=== PATIENT | male | born 1985 | race Caucasian/White ===

== ENCOUNTER 2017-01-01 05:35 | Emergency (ER) | payer BC, OTHER ==
[~2017-01-01] VITALS: Ht 172.7 cm; Wt 57.5 kg
[~2017-01-01 05:35] MED LIST: AMOX500T PO; AZIT500I PO; CELE20TA PO; DOXY100 PO; PROP40TA27 PO; [UNRECOGNIZED DRUG - CODE] EX
[2017-01-01 05:36] VITALS: BP 161/108; PULSE 78; RESP 16; TEMP 99.4; O2SAT 96; O2SAT 98
--- NOTE | 2017-01-01 07:26 | PD ---
HPI Chief Complaint: Psychiatric Symptoms Time Seen by Provider: 07:10 Travel History International Travel<30 days: No Contact w/Intl Traveler<30days: No Traveled to known affect area: No History of Present Illness HPI 31-year-old male presents voluntarily for evaluation of suicidal ideation. For the past few weeks he has been having occasional suicidal thoughts. At one point he did pull a knife but he did not use it. He does endorse alcohol use regularly. Denies any illicit drug use. Denies any homicidal ideation or hallucinations. He has no other complaints at this time. PFSH Past Medical History Anxiety: Yes Depression: Yes Diminished Hearing: No Medical other: Yes (LOW BLOOD SUGAR, ESSENTIAL TREMOR) Immunizations Current: Yes Past Surgical History Surgical History: No Previous Surgery Social History Alcohol Use: Yes ("EVER OTHER DAY") Tobacco Use: Yes (1PPD) Substance Use: Yes (MARIJUANA) Allergies-Medications (Allergen,Severity, Reaction): Coded Allergies: Penicillin (Verified Allergy, Unknown, 01/01/17) Reported Meds & Prescriptions Reported Meds & Active Scripts Active No Active Prescriptions or Reported Medications Review of Systems Except as stated in HPI: all other systems reviewed are Neg Physical Exam Narrative GENERAL: Well-developed well-nourished male in no acute distress SKIN: Warm and dry. HEAD: Atraumatic. Normocephalic. EYES: Pupils equal and round. No scleral icterus. No injection or drainage. ENT: No nasal bleeding or discharge. Mucous membranes pink and moist. NECK: Trachea midline. No JVD. CARDIOVASCULAR: Regular rate and rhythm. No murmur appreciated. RESPIRATORY: No accessory muscle use. Clear to auscultation. Breath sounds equal bilaterally. GASTROINTESTINAL: Abdomen soft, non-tender, nondistended. Hepatic and splenic margins not palpable. MUSCULOSKELETAL: No obvious deformities. NEUROLOGICAL: Awake and alert. No obvious cranial nerve deficits. Motor grossly within normal limits. Normal speech. PSYCHIATRIC: Depressed mood; insight and judgment normal. Data Data Last Documented VS Vital Signs Date Time Temp Pulse Resp B/P Pulse Ox O2 Delivery O2 Flow Rate FiO2 01/01/17 05:36 99.4 78 16 161/108 96 Room Air Orders Complete Blood Count With Diff (01/01/17 07:13) Comprehensive Metabolic Panel (01/01/17 07:13) Psych Screen (01/01/17 07:13) Drug Screen, Random Urine (01/01/17 07:13) Alcohol (Ethanol) (01/01/17 07:13) Diet Regular Basic (01/01/17 Breakfast) Labs Laboratory Tests Test 01/01/17 01/01/17 06:00 07:14 White Blood Count 11.3 TH/MM3 Red Blood Count 5.15 MIL/MM3 Hemoglobin 15.6 GM/DL Hematocrit 44.3 % Mean Corpuscular Volume 86.0 FL Mean Corpuscular Hemoglobin 30.3 PG Mean Corpuscular Hemoglobin 35.2 % Concent Red Cell Distribution Width 13.0 % Platelet Count 134 TH/MM3 Mean Platelet Volume 9.2 FL Neutrophils (%) (Auto) 77.9 % Lymphocytes (%) (Auto) 16.3 % Monocytes (%) (Auto) 4.4 % Eosinophils (%) (Auto) 0.8 % Basophils (%) (Auto) 0.6 % Neutrophils # (Auto) 8.8 TH/MM3 Lymphocytes # (Auto) 1.8 TH/MM3 Monocytes # (Auto) 0.5 TH/MM3 Eosinophils # (Auto) 0.1 TH/MM3 Basophils # (Auto) 0.1 TH/MM3 CBC Comment DIFF FINAL Differential Comment Sodium Level 142 MEQ/L Potassium Level 3.7 MEQ/L Chloride Level 107 MEQ/L Carbon Dioxide Level 26.5 MEQ/L Anion Gap 9 MEQ/L Blood Urea Nitrogen 14 MG/DL Creatinine 1.01 MG/DL Estimat Glomerular Filtration 87 ML/MIN Rate Random Glucose 83 MG/DL Calcium Level 9.2 MG/DL Total Bilirubin 0.9 MG/DL Aspartate Amino Transf 16 U/L (AST/SGOT) Alanine Aminotransferase 23 U/L (ALT/SGPT) Alkaline Phosphatase 48 U/L Total Protein 7.5 GM/DL Albumin 4.6 GM/DL Ethyl Alcohol Level LESS THAN 3 MG/DL Urine Opiates Screen NEG Urine Barbiturates Screen NEG Urine Amphetamines Screen NEG Urine Benzodiazepines Screen NEG Urine Cocaine Screen POS Urine Cannabinoids Screen POS MDM Medical Decision Making Medical Screen Exam Complete: Yes Emergency Medical Condition: Yes Medical Record Reviewed: Yes Interpretation(s) CBC WBC 11.3, platelet count 134 CMP unremarkable Toxicology positive for cocaine, cannabinoids Differential Diagnosis Major depressive disorder, depressive disorder not otherwise specified, acute psychosis, substance induced mood disorder, adjustment reaction Narrative Course 31-year-old male presents voluntarily requesting psychiatric evaluation of suicidal ideation. Mental health screening discussed with the patient. Psychiatric screen ordered. The patient's lab work is notable for positive cocaine and cannabinol toxicology screen. The patient is medically cleared for psychiatric disposition. Diagnosis Primary Impression: Suicidal ideation Scripts No Active Prescriptions or Reported Meds Mike Mendsoa Jan 01, 2017 07:26
[2017-01-01 07:47] LABS: AUTOMATED NEUTROPHIL # 8.8 TH/MM3 (1.8-7.7); BASOPHIL # 0.1 TH/MM3 (0-0.2); BASOPHIL % 0.6 % (0.0-2.0); EOSINOPHIL # 0.1 TH/MM3 (0-0.4); EOSINOPHIL % 0.8 % (0.0-4.0); HEMATOCRIT 44.3 % (39.0-51.0); HEMO FLAGS DIFF FINAL; LYMPH % 16.3 % (9.0-44.0); LYMPHOCYTE # 1.8 TH/MM3 (1.0-4.8); MEAN CORPUSCULAR HEMOGLOBIN 30.3 PG (27.0-34.0); MEAN CORPUSCULAR HGB CONC 35.2 % (32.0-36.0); MONO % 4.4 % (0.0-8.0); NEUT % 77.9 % (16.0-70.0); PLATELET COUNT 134 TH/MM3 (150-450); RED BLOOD COUNT 5.15 MIL/MM3 (4.50-5.90); WHITE BLOOD COUNT 11.3 TH/MM3 (4.0-11.0)
[2017-01-01 07:58] LABS: AMPHETAMINE, URINE NEG (NEG); BARBITURATES, URINE NEG (NEG); COCAINE, URINE POS (NEG)
[2017-01-01 08:00] LABS: ALT (GPT) 23 U/L (12-78); ANION GAP 9 MEQ/L (5-15); AST (GOT) 16 U/L (15-37); BICARBONATE 26.5 MEQ/L (21.0-32.0); BLOOD UREA NITROGEN 14 MG/DL (7-18); CHLORIDE 107 MEQ/L (98-107); GLOMERULAR FILTRATION RATE 87 ML/MIN (>89); POTASSIUM 3.7 MEQ/L (3.5-5.1); SODIUM (NA) 142 MEQ/L (136-145)
[2017-01-01 08:02] LABS: ALKALINE PHOSPHATASE 48 U/L (45-117); TOTAL BILIRUBIN ADULT 0.9 MG/DL (0.2-1.0)
[2017-01-01] MEDS ORDERED: BUPR75TA PO (08:46)
--- NOTE | 2017-01-01 11:50 | PD.CONS ---
Provisional Diagnosis Admission Date Seymour I. Major depressive disorder, single episode, without psychosis vs substance- induced mood disorder vs adjustment disorder with depressed mood, cannabis and cocaine use disorder Seymour II. Deferred Seymour III. He denies Seymour IV. Recent interruption of 5 years relationship with girlfriend Seymour V. 56 History of Present Illness Service Psychiatry Consult Requested By Primary Care Physician No Primary Care Physician HPI The patient is a 31 years old man, domiciled with his grandmother, employed, single, with reported a psychiatric history of anxiety and depression , no previous Hospitalizations, he is not in outpatient psychiatric care, he has been in Wellbutrin and Prozac in the past, no previous suicidal attempts, occasionally uses cannabis and cocaine, alcohol socially, no significant medical history, who came to the hospital voluntarily requesting a psychiatric evaluation for frequent suicidal thoughts and depressive symptoms. On psychiatric evaluation in the ER patient was found calm, cooperative, he states that since he broke up with girlfriend about month ago that things in his life has been going down that hill. Patient says that he had a 5 years relationship with this person and hasn't been easy to live without her. He also says that his grandfather recently and has been mourning since then. Patient endorses increased use of alcohol, cocaine and cannabis in order to treat his depression. He reports about 1 month of poor appetite, low energy, weight loss , frequent suicidal thoughts, generalized pessimism, no enjoying life, but he denies active suicidal ideation, he denies homicidal ideation, he denies visual and auditory hallucination. Patient is fully oriented in 3, no gross cognitive impairment observed. Review of Systems Constitutional: DENIES: Diaphoretic episodes, Fatigue, Fever, Weight gain, Weight loss, Chills, Dizziness, Change in appetite, Night Sweats Endocrine: DENIES: Heat/cold intolerance, Polydipsia, Polyuria, Polyphagia Eyes: DENIES: Blurred vision, Diplopia, Eye inflammation, Eye pain, Vision loss , Photosensitivity, Double Vision Ears, nose, mouth, throat: DENIES: Tinnitus, Hearing loss, Vertigo, Nasal discharge, Oral lesions, Throat pain, Hoarseness, Ear Pain, Running Nose, Epistaxis, Sinus Pain, Toothache, Odynophagia Respiratory: DENIES: Apneas, Cough, Snoring, Wheezing, Hemoptysis, Sputum production, Shortness of breath Cardiovascular: DENIES: Chest pain, Palpitations, Syncope, Dyspnea on Exertion , PND, Lower Extremity Edema, Orthopnea, Claudication Gastrointestinal: DENIES: Abdominal pain, Black stools, Bloody stools, Constipation, Diarrhea, Nausea, Vomiting, Difficulty Swallowing, Anorexia Musculoskeletal: DENIES: Joint pain, Muscle aches, Stiffness, Joint Swelling, Back pain, Neck pain Integumentary: DENIES: Abnormal pigmentation, Nail changes, Pruritus, Rash Hematologic/lymphatic: DENIES: Bruising, Lymphadenopathy Immunologic/allergic: DENIES: Eczema, Urticaria Neurologic: DENIES: Abnormal gait, Headache, Localized weakness, Paresthesias, Seizures, Speech Problems, Tremor, Poor Balance Psychiatric: DENIES: Anxiety, Confusion, Mood changes, Depression, Hallucinations, Agitation, Suicidal Ideation, Homicidal Ideation, Delusions Past Family Social History Coded Allergies: Penicillin (Verified Allergy, Unknown, 01/01/17) Active Scripts Bupropion HCl 75 Mg Tab75 Mg PO BID #30 TAB Ref 0 Prov:Perfecto Vital MD 01/01/17 Family History His mother is bipolar Social History Patient was born in [place], he has been living in [place] for about 24 years, he lives with his grandmother, he works for [employer], his highest level of education is 1 year college. Physical Exam Vital Signs Vital Signs Date Time Temp Pulse Resp B/P Pulse Ox O2 Delivery O2 Flow Rate FiO2 01/01/17 05:36 99.4 78 16 161/108 96 Room Air Mental Status Examination Appearance Skinny man, age appearing, good hygiene, [facility], calm and cooperative Speech: Unremarkable Orientation: x3 Memory: Unremarkable Thought Process: Logical Thought Content: Unremarkable Hallucination Type: None Suicidal Ideation: No Previous Suicide Attempts: No Homicidal Ideation: No Previous Homicide Attempts: No Judgement: WNL Affect: Euthymic Mood: Appropriate Motor Activity: Normal gait Assessment & Plan Problem List: (1) Depression Assessment & Plan: Patient endorses depression in the context of recent breakup with girlfriend and the of his grandfather. For the last month he has been experiencing depressed mood, low appetite, weight loss, generalized pessimism, frequent suicidal thoughts, but he denies active suicidal ideation, he denies homicidal ideation, he denies visual and auditory hallucinations. He denies hopelessness, denies helplessness, he denies worthlessness, he denies anhedonia. Patient has been increasingly using cocaine, marijuana and alcohol. He does not meet criteria for psychiatric admission at this moment. Since Wellbutrin work for pain in the past, would give a prescription of 75 mg twice a day for depression. Also we will give him a referral for outpatient psychiatric care. Brief supportive psychotherapy, motivational psychoeducation provided. ICD Code: 311 Assessment & Plan Estimated LOS: days Perfecto Vital MD Jan 01, 2017 11:50
== END 2017-01-01 09:51 | disposition home or self-care (01) ==
LOC: NEPA 05:35
DX: F32.9 Major depressive disorder, single episode, unspecified (principal)
CPT/HCPCS: 80053; 80307; 80320; 85025; 99284

== ENCOUNTER 2018-01-19 23:59 | Inpatient (IN) | payer BC, OTHER ==
[~2018-01-19] VITALS: Ht 172.7 cm; Wt 61.2 kg
[~2018-01-19 23:59] MED LIST changes: -AMOX500T PO; -AZIT500I PO; +BUPR75TA PO; -CELE20TA PO; -DOXY100 PO; -PROP40TA27 PO; -[UNRECOGNIZED DRUG - CODE] EX
[2018-01-20] VITALS: BP 158/101; PULSE 98; RESP 18; TEMP 98.3; O2SAT 99
--- NOTE | 2018-01-20 00:23 | PD ---
HPI Chief Complaint: Armstrong act Time Seen by Provider: 00:16 Travel History International Travel<30 days: No Contact w/Intl Traveler<30days: No Traveled to known affect area: No History of Present Illness HPI 32-year-old male with history of social anxiety disorder, generalized mood disorder, brought in under Armstrong act for making suicidal statements. Patient admits to making suicidal statements. He does not have an exact plan. He was drinking alcohol today. He smokes marijuana occasionally, but denies any i other illicit drugs. No IVDU. He complains of having 2 boils to his right axilla, one has already spontaneously drained, the other one has not. He states that because of these skin abscesses he has been taking one of his friends and Zithromax for the past month. [facility] Past Medical History Anxiety: Yes Depression: Yes Diminished Hearing: No Immunizations Current: Yes Social History Alcohol Use: Yes ("EVER OTHER DAY") Tobacco Use: Yes (1PPD) Substance Use: Yes (MARIJUANA) Allergies-Medications (Allergen,Severity, Reaction): Coded Allergies: penicillin G (Unverified Allergy, Unknown, 06/20/17) Reported Meds & Prescriptions Reported Meds & Active Scripts Active Bactrim DS (Sulfamethoxazole-Trimethoprim) 800-160 Mg Tab 1 Tab PO BID Bupropion HCl 75 Mg Tab 75 Mg PO BID Review of Systems Except as stated in HPI: all other systems reviewed are Neg Physical Exam Narrative GENERAL: Well-developed, well-nourished, comfortable, no apparent distress. SKIN: Focused skin assessment warm/dry. Right axilla with an area of fluctuance approximately 3 cm x 3 cm with mild overlying erythema. There is another circular area of erythema with mild induration, no fluctuance in the right axilla. HEAD: Atraumatic. Normocephalic. EYES: Pupils equal and round. No scleral icterus. No injection or drainage. ENT: Mucous membranes pink and moist. NECK: Trachea midline. No JVD. CARDIOVASCULAR: Regular rate and rhythm. No murmur appreciated. RESPIRATORY: No accessory muscle use. Clear to auscultation. Breath sounds equal bilaterally. GASTROINTESTINAL: Abdomen soft, non-tender, nondistended. MUSCULOSKELETAL: No obvious deformities. No clubbing. No cyanosis. No edema. NEUROLOGICAL: Awake and alert. No obvious cranial nerve deficits. Motor grossly within normal limits. Normal speech. PSYCHIATRIC: Appropriate mood and affect; insight and judgment normal. Data Data Last Documented VS Vital Signs Date Time Temp Pulse Resp B/P (MAP) Pulse Ox O2 Delivery O2 Flow Rate FiO2 01/20/18 00:54 18 01/20/18 00:00 98.3 98 158/101 (120) 99 Orders Orders Complete Blood Count With Diff (01/20/18 00:20) Comprehensive Metabolic Panel (01/20/18 00:20) Thyroid Stimulating Hormone (01/20/18 00:20) Psych Screen (01/20/18 00:20) Drug Screen, Random Urine (01/20/18 00:20) Alcohol (Ethanol) (01/20/18 00:20) Sulfamet-Trimeth Ds 800-160 Mg (Bactrim (01/20/18 00:30) Lidocai-Epi 1%-1:100,000 Inj (Xylocaine- (01/20/18 01:00) Wound Culture And Gram Stain (01/20/18 01:08) Labs Laboratory Tests Test 01/20/18 00:20 White Blood Count 13.7 TH/MM3 Red Blood Count 5.22 MIL/MM3 Hemoglobin 15.4 GM/DL Hematocrit 44.3 % Mean Corpuscular Volume 84.9 FL Mean Corpuscular Hemoglobin 29.4 PG Mean Corpuscular Hemoglobin Concent 34.7 % Red Cell Distribution Width 13.6 % Platelet Count 151 TH/MM3 Mean Platelet Volume 7.7 FL Neutrophils (%) (Auto) 69.0 % Lymphocytes (%) (Auto) 21.9 % Monocytes (%) (Auto) 5.1 % Eosinophils (%) (Auto) 3.5 % Basophils (%) (Auto) 0.5 % Neutrophils # (Auto) 9.5 TH/MM3 Lymphocytes # (Auto) 3.0 TH/MM3 Monocytes # (Auto) 0.7 TH/MM3 Eosinophils # (Auto) 0.5 TH/MM3 Basophils # (Auto) 0.1 TH/MM3 CBC Comment DIFF FINAL Differential Comment Blood Urea Nitrogen 13 MG/DL Creatinine 1.03 MG/DL Random Glucose 81 MG/DL Total Protein 7.9 GM/DL Albumin 4.4 GM/DL Calcium Level 8.6 MG/DL Alkaline Phosphatase 73 U/L Aspartate Amino Transf (AST/SGOT) 21 U/L Alanine Aminotransferase (ALT/SGPT) 22 U/L Total Bilirubin 0.7 MG/DL Sodium Level 140 MEQ/L Potassium Level 3.5 MEQ/L Chloride Level 106 MEQ/L Carbon Dioxide Level 25.3 MEQ/L Anion Gap 9 MEQ/L Estimat Glomerular Filtration Rate 84 ML/MIN Thyroid Stimulating Hormone 3rd Gen 0.628 uIU/ML Ethyl Alcohol Level 145 MG/DL MDM Medical Decision Making Medical Screen Exam Complete: Yes Emergency Medical Condition: Yes Differential Diagnosis Suicidal ideation, mood disorder, alcohol intoxication, axillary abscess/ cellulitis Narrative Course Vital signs reviewed. Right axillary abscess incised and drained by ALKA Mendosa. See his note. The patient will be started on Bactrim as there is mild cellulitis over the right axillary abscess. Labs reviewed. Alcohol level is 145. The patient is medically cleared for psychiatric evaluation and disposition by them. Diagnosis Primary Impression: Medical clearance for psychiatric admission Additional Impression: Abscess of right axilla Scripts Sulfamethoxazole-Trimethoprim (Bactrim DS) 800-160 Mg Tab 1 TAB PO BID for Infection, #20 TAB 0 Refills Prov: Dusty Baker MD 01/20/18 Dusty Baker MD Jan 20, 2018 00:23
[2018-01-20] MEDS ORDERED: SULFAMETHOXAZOLE-TRIMETHOPRIM DS 800-160 MG TAB PO ONE (00:30)
[2018-01-20 00:52] LABS: AUTOMATED NEUTROPHIL # 9.5 TH/MM3 (1.8-7.7); BASOPHIL # 0.1 TH/MM3 (0-0.2); BASOPHIL % 0.5 % (0.0-2.0); EOSINOPHIL # 0.5 TH/MM3 (0-0.4); EOSINOPHIL % 3.5 % (0.0-4.0); HEMATOCRIT 44.3 % (39.0-51.0); HEMOGLOBIN 15.4 GM/DL (13.0-17.0); LYMPH % 21.9 % (9.0-44.0); MEAN CELL VOLUME 84.9 FL (80.0-100.0); MEAN CORPUSCULAR HEMOGLOBIN 29.4 PG (27.0-34.0); MEAN CORPUSCULAR HGB CONC 34.7 % (32.0-36.0); MEAN PLATELET VOLUME 7.7 FL (7.0-11.0); MONO % 5.1 % (0.0-8.0); MONOCYTE # 0.7 TH/MM3 (0-0.9); PLATELET COUNT 151 TH/MM3 (150-450); RED BLOOD COUNT 5.22 MIL/MM3 (4.50-5.90); RED CELL DISTRIBUTION WIDTH 13.6 % (11.6-17.2); WHITE BLOOD COUNT 13.7 TH/MM3 (4.0-11.0)
[2018-01-20] MEDS ORDERED: LIDOCAINE 1%/EPINEPHrine 1:100,000 SOLN 20 ML VIAL INFIL ONE (01:00)
--- NOTE | 2018-01-20 01:06 | PD ---
Data Data Last Documented VS Vital Signs Date Time Temp Pulse Resp B/P (MAP) Pulse Ox O2 Delivery O2 Flow Rate FiO2 01/20/18 00:54 18 01/20/18 00:00 98.3 98 158/101 (120) 99 Orders Orders Complete Blood Count With Diff (01/20/18 00:20) Comprehensive Metabolic Panel (01/20/18 00:20) Thyroid Stimulating Hormone (01/20/18 00:20) Psych Screen (01/20/18 00:20) Drug Screen, Random Urine (01/20/18 00:20) Alcohol (Ethanol) (01/20/18 00:20) Sulfamet-Trimeth Ds 800-160 Mg (Bactrim (01/20/18 00:30) Lidocai-Epi 1%-1:100,000 Inj (Xylocaine- (01/20/18 01:00) Labs Laboratory Tests Test 01/20/18 00:20 White Blood Count 13.7 TH/MM3 Red Blood Count 5.22 MIL/MM3 Hemoglobin 15.4 GM/DL Hematocrit 44.3 % Mean Corpuscular Volume 84.9 FL Mean Corpuscular Hemoglobin 29.4 PG Mean Corpuscular Hemoglobin Concent 34.7 % Red Cell Distribution Width 13.6 % Platelet Count 151 TH/MM3 Mean Platelet Volume 7.7 FL Neutrophils (%) (Auto) 69.0 % Lymphocytes (%) (Auto) 21.9 % Monocytes (%) (Auto) 5.1 % Eosinophils (%) (Auto) 3.5 % Basophils (%) (Auto) 0.5 % Neutrophils # (Auto) 9.5 TH/MM3 Lymphocytes # (Auto) 3.0 TH/MM3 Monocytes # (Auto) 0.7 TH/MM3 Eosinophils # (Auto) 0.5 TH/MM3 Basophils # (Auto) 0.1 TH/MM3 CBC Comment DIFF FINAL Differential Comment MDM Medical Record Reviewed: Yes Supervised Visit with SHANELLE: No Narrative Course The patient has an abscess in the right axilla which I was asked to drain, he verbally consented. Wound culture performed. Procedures Procedure Narrative INCISION AND DRAINAGE OF ABSCESS: The area was prepped and was sterilely draped. A subcutaneous wheal of 1% Xylocaine with a total number 5 mL was used to anesthetize the area. The area was properly anesthetized. A number [- ] scalpel was used to make a [-] -cm incision across the area of the abscess. Cultures were obtained. The abscess was drained an irrigated with normal saline. Mike Mendosa Jan 20, 2018 01:06
[2018-01-20 01:08] LABS: ALBUMIN 4.4 GM/DL (3.4-5.0); ALT (GPT) 22 U/L (12-78); AST (GOT) 21 U/L (15-37); BICARBONATE 25.3 MEQ/L (21.0-32.0); BLOOD UREA NITROGEN 13 MG/DL (7-18); CALCIUM 8.6 MG/DL (8.5-10.1); CHLORIDE 106 MEQ/L (98-107); CREATININE 1.03 MG/DL (0.60-1.30); GLOMERULAR FILTRATION RATE 84 ML/MIN (>89); GLUCOSE,RANDOM 81 MG/DL (74-106); SODIUM (NA) 140 MEQ/L (136-145)
[2018-01-20] MEDS ORDERED: BACT800T5 PO (01:14)
[2018-01-20 01:19] LABS: ALKALINE PHOSPHATASE 73 U/L (45-117); TOTAL BILIRUBIN ADULT 0.7 MG/DL (0.2-1.0); TOTAL PROTEIN 7.9 GM/DL (6.4-8.2)
[2018-01-20] MEDS ORDERED: IBUPROFEN 800 MG TAB PO ONE (01:30)
[2018-01-20 05:31] VITALS: BP 142/93; PULSE 86; RESP 18; O2SAT 98
[2018-01-20] MEDS ORDERED: NICOTINE 21 MG/24 HR PATCH T-DERMAL PRN (08:00)
[2018-01-20] MEDS ORDERED: LORazepam 1 MG TAB PO PRN (08:00)
[2018-01-20] MEDS ORDERED: ACETAMINOPHEN 325 MG TAB PO PRN (08:00)
[2018-01-20] MEDS ORDERED: MAGNESIUM HYDROXIDE SUSP 30 ML CUP PO PRN (08:00)
[2018-01-20] MEDS ORDERED: FLUMAZENIL 0.5 MG/5 ML VIAL IV PUSH PRN (08:00)
[2018-01-20] MEDS ORDERED: LORazepam 2 MG TAB PO PRN (08:00)
[2018-01-20] MEDS ORDERED: hydrOXYzine HCL 50 MG TAB PO PRN (08:00)
[2018-01-20] MEDS ORDERED: BENZTROPINE MESYLATE 2 MG/2 ML VIAL IM PRN (08:00)
[2018-01-20] MEDS ORDERED: LORazepam 2 MG/ML VIAL IM PRN ×4 (08:00)
[2018-01-20] MEDS ORDERED: BENZTROPINE MESYLATE 1 MG TAB PO PRN (08:00)
[2018-01-20] MEDS ORDERED: ALUMINUM/MAGNESIUM/SIMETH 30 ML CUP PO PRN (08:00)
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
[2018-01-20 08:14] VITALS: BP 122/83; PULSE 89; RESP 16; TEMP 97.8; O2SAT 96
[2018-01-20] MEDS ORDERED: buPROPion HCL 150 MG SUSTAINED RELEASE TAB PO SCH (09:00)
[2018-01-20 10:56] VITALS: BP 129/77; PULSE 81; RESP 18; TEMP 98.1; O2SAT 98
[2018-01-20] MEDS: MULTIVITAMINS/MINERALS THERAPEUTIC TAB PO SCH (12:36)
[2018-01-20] MEDS: THIAMINE HCL 100 MG TAB PO SCH (12:36)
[2018-01-20] MEDS: SULFAMETHOXAZOLE-TRIMETHOPRIM DS 800-160 MG TAB PO SCH ×2 (12:36→21:00)
[2018-01-20] MEDS: FOLIC ACID 1 MG TAB PO SCH (12:36)
[2018-01-20] MEDS: buPROPion HCL 150 MG SUSTAINED RELEASE TAB PO SCH (12:37)
[2018-01-20] MEDS: diphenhydrAMINE HCL 50 MG CAP PO PRN (22:06)
[2018-01-21 05:10] VITALS: BP 124/65; PULSE 77; RESP 16; TEMP 98; O2SAT 98
[2018-01-21] MEDS: MULTIVITAMINS/MINERALS THERAPEUTIC TAB PO SCH (09:04)
[2018-01-21] MEDS: buPROPion HCL 150 MG SUSTAINED RELEASE TAB PO SCH (09:04)
[2018-01-21] MEDS: THIAMINE HCL 100 MG TAB PO SCH (09:04)
[2018-01-21] MEDS: SULFAMETHOXAZOLE-TRIMETHOPRIM DS 800-160 MG TAB PO SCH ×2 (09:04→21:00)
[2018-01-21] MEDS: FOLIC ACID 1 MG TAB PO SCH (09:04)
[2018-01-21 09:30] LABS: AUTOMATED NEUTROPHIL # 3.9 TH/MM3 (1.8-7.7); BASOPHIL % 0.5 % (0.0-2.0); EOSINOPHIL # 0.3 TH/MM3 (0-0.4); EOSINOPHIL % 5.8 % (0.0-4.0); HEMATOCRIT 41.1 % (39.0-51.0); HEMOGLOBIN 14.4 GM/DL (13.0-17.0); LYMPH % 20.3 % (9.0-44.0); LYMPHOCYTE # 1.2 TH/MM3 (1.0-4.8); MEAN CELL VOLUME 84.4 FL (80.0-100.0); MEAN CORPUSCULAR HEMOGLOBIN 29.5 PG (27.0-34.0); MEAN PLATELET VOLUME 7.9 FL (7.0-11.0); MONO % 8.8 % (0.0-8.0); MONOCYTE # 0.5 TH/MM3 (0-0.9); NEUT % 64.6 % (16.0-70.0); PLATELET COUNT 136 TH/MM3 (150-450); RED BLOOD COUNT 4.87 MIL/MM3 (4.50-5.90); RED CELL DISTRIBUTION WIDTH 13.3 % (11.6-17.2); WHITE BLOOD COUNT 6.1 TH/MM3 (4.0-11.0)
[2018-01-21 09:47] LABS: BICARBONATE 24.5 MEQ/L (21.0-32.0); BLOOD UREA NITROGEN 13 MG/DL (7-18); CALCIUM 8.6 MG/DL (8.5-10.1); CHLORIDE 106 MEQ/L (98-107); CHOLESTEROL 122 MG/DL (120-200); CHOLESTEROL/ HDL RATIO 1.94 RATIO; CREATININE 1.19 MG/DL (0.60-1.30); GLOMERULAR FILTRATION RATE 71 ML/MIN (>89); GLUCOSE,RANDOM 186 MG/DL (74-106); HDL CHOLESTEROL 62.7 MG/DL (40.0-60.0); LDL CHOLESTEROL 46 MG/DL (0-99); SODIUM (NA) 139 MEQ/L (136-145); TRIGLYCERIDES 66 MG/DL (42-150)
--- NOTE | 2018-01-21 10:55 | HHI.PYPN ---
Subjective Chief Complaint: depression Remarks Patient was seen and case discussed with nursing. Patient attributes his suicidal ideations to acute intoxication. Says he is no longer suicidal or depressed. However patient appears anxious, flat, watery eyes. Compliant with medications. CIWA is 0 Mental Status Examination Appearance: Appropriate Consciousness: Alert Orientation: x4 Motor Activity: Other (no motor abnormalities noted. No signs of intoxication or withdrawal noted.) Speech: Unremarkable Language: Adequate Fund of Knowledge: Adequate Attention and Concentration: Other (somewhat impaired) Memory: Unremarkable Mood: Sad Affect: Blunt Thought Process & Associations: Intact, Logical, Linear Thought Content: Appropriate Hallucination Type: None Delusion Type: None Suicidal Ideation: No Suicidal Plan: No Suicidal Intention: No Homicidal Ideation: No Homicidal Plan: No Homicidal Intention: No Insight: Fair Judgment: Impulsive Results Labs Test 01/20/18 13:15 01/21/18 08:38 Urine Opiates Screen NEG Urine Barbiturates Screen NEG Urine Amphetamines Screen POS Urine Benzodiazepines Screen NEG Urine Cocaine Screen NEG Urine Cannabinoids Screen POS White Blood Count 6.1 TH/MM3 Red Blood Count 4.87 MIL/MM3 Hemoglobin 14.4 GM/DL Hematocrit 41.1 % Mean Corpuscular Volume 84.4 FL Mean Corpuscular Hemoglobin 29.5 PG Mean Corpuscular Hemoglobin Concent 35.0 % Red Cell Distribution Width 13.3 % Platelet Count 136 TH/MM3 Mean Platelet Volume 7.9 FL Neutrophils (%) (Auto) 64.6 % Lymphocytes (%) (Auto) 20.3 % Monocytes (%) (Auto) 8.8 % Eosinophils (%) (Auto) 5.8 % Basophils (%) (Auto) 0.5 % Neutrophils # (Auto) 3.9 TH/MM3 Lymphocytes # (Auto) 1.2 TH/MM3 Monocytes # (Auto) 0.5 TH/MM3 Eosinophils # (Auto) 0.3 TH/MM3 Basophils # (Auto) 0.0 TH/MM3 CBC Comment DIFF FINAL Differential Comment Blood Urea Nitrogen 13 MG/DL Creatinine 1.19 MG/DL Random Glucose 186 MG/DL Calcium Level 8.6 MG/DL Sodium Level 139 MEQ/L Potassium Level 3.7 MEQ/L Chloride Level 106 MEQ/L Carbon Dioxide Level 24.5 MEQ/L Anion Gap 9 MEQ/L Estimat Glomerular Filtration Rate 71 ML/MIN Triglycerides Level 66 MG/DL Cholesterol Level 122 MG/DL LDL Cholesterol 46 MG/DL HDL Cholesterol 62.7 MG/DL Cholesterol/HDL Ratio 1.94 RATIO Date/Time Source Procedure Growth Status 01/20/18 02:00 Wound Arm Gram Stain - Final Resulted 01/20/18 02:00 Wound Arm Wound Culture Pending Resulted Vitals/IOs Vital Signs Date Time Temp Pulse Resp B/P (MAP) Pulse Ox O2 Delivery O2 Flow Rate FiO2 01/21/18 05:10 98.0 77 16 124/65 (84) 98 01/20/18 08:14 Room Air Intake and Output 01/21/18 01/21/18 01/22/18 08:00 16:00 00:00 Intake Total 480 ml Balance 480 ml Assessment & Plan Problem List: (1) Major depressive disorder, recurrent severe without psychotic features ICD Codes: F33.2 - Major depressive disorder, recurrent severe without psychotic features (2) Alcohol abuse ICD Codes: F10.10 - Alcohol abuse, uncomplicated Assessment & Plan Continue current treatment plan Justification for Cont. Inpt. Patient will decompensate in a less restrictive setting Request HC Surrog/Guard Advoc?: No Oscar Edmonds DO Jan 21, 2018 10:55
[2018-01-21 13:34] LABS: HEMOGLOBIN A1C 4.7 % (4.3-6.0)
[2018-01-21 17:01] VITALS: BP 124/65; PULSE 77; RESP 16; TEMP 98; O2SAT 98
[2018-01-21] MEDS: diphenhydrAMINE HCL 50 MG CAP PO PRN (22:07)
[2018-01-21 23:44] VITALS: BP 116/62; PULSE 67; RESP 16; TEMP 97.5; O2SAT 97
[2018-01-22 06:24] VITALS: BP 125/82; PULSE 68; RESP 16; TEMP 97.6; O2SAT 98
[2018-01-22] MEDS: THIAMINE HCL 100 MG TAB PO SCH (08:40)
[2018-01-22] MEDS: buPROPion HCL 150 MG SUSTAINED RELEASE TAB PO SCH (08:40)
[2018-01-22] MEDS: FOLIC ACID 1 MG TAB PO SCH (08:40)
[2018-01-22] MEDS: SULFAMETHOXAZOLE-TRIMETHOPRIM DS 800-160 MG TAB PO SCH (09:00)
[2018-01-22] MEDS: MULTIVITAMINS/MINERALS THERAPEUTIC TAB PO SCH (09:00)
[2018-01-22] MEDS ORDERED: BUPR150CR PO (10:35)
[2018-01-22] MEDS ORDERED: FOLI1TAB6 PO (10:35)
[2018-01-22] MEDS ORDERED: THIA100 PO (10:35)
[2018-01-22] MEDS ORDERED: THERM PO (10:35)
[2018-01-22] MEDS ORDERED: SULF1TAB23 PO (10:35)
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
== END 2018-01-22 13:10 | disposition home or self-care (01) | DRG 885 ==
LOC: NEPD 23:59 → NEDA 01-20 07:48 → H260 01-20 10:45 → H4EA 01-21 17:30
PROVIDERS: ADMIT Student in an Organized Health Care Education/Training Program; ATTEND Student in an Organized Health Care Education/Training Program
PROC: 0H9BXZX Drainage of Right Upper Arm Skin, External Approach, Diagnostic (ICD-10-PCS; principal; 2018-01-20)
DX: F33.2 Major depressive disorder, recurrent severe without psychotic features (principal); L02.411 Cutaneous abscess of right axilla; F10.10 Alcohol abuse, uncomplicated; Y90.6 Blood alcohol level of 120-199 mg/100 ml; Z81.8 Family history of other mental and behavioral disorders; Z62.810 Personal history of physical and sexual abuse in childhood
CPT/HCPCS: 10060; 80048; 80053; 80061; 80307; 83036; 84443; 85025; 86403; 87070; 87147; 87186; Q0163